=== PATIENT | male | born 1940 | race Caucasian/White ===

== ENCOUNTER 2017-04-16 09:19 | Inpatient (IN) | payer MEDICARE, BC ==
[~2017-04-16] VITALS: Ht 177.8 cm; Wt 100.8 kg
[~2017-04-16 09:19] MED LIST: AMBIEN 5MG TABLE5 MG PO; ASPIRIN 32325 MG/TAB PO; CENTRUM SILVER1 TA1 PO; COMBIVENT INH14.7 GM IH; CRESTOR5 MG PO; GLUCOPHAGE500 MG/TAB PO; KLONOPIN 1MG1 MG PO; LISINOPRIL20 MG PO; METOPROLOL25 MG PO; NEURONTIN300 MG/CAP PO; OMEPRAZOLE20 MG PO; VITAMIN D32000 IU PO
[2017-05-29] VITALS (13 sets, daily range): BP systolic 111–173; BP diastolic 61–84; PULSE 54–83; TEMP 96.9–98.8
[2017-05-29] MEDS ORDERED: PLAVIX 75MG TAB75 MG PO (07:20)
[2017-05-29] MEDS ORDERED: COZAAR100 MG PO (07:21)
[2017-05-30 04:03] VITALS: BP 134/66; PULSE 73; TEMP 98
[2017-05-30 06:59] LABS: HEMOGLOBIN 11.9 g/dl (13.5-18.0)
[2017-05-30 07:36] VITALS: BP 140/65; PULSE 75; TEMP 97.9
[2017-05-30 11:10] VITALS: BP 147/69; PULSE 54; TEMP 98.2
[2017-05-30 15:22] VITALS: BP 152/63; PULSE 81; TEMP 97.7
[2017-05-30 20:45] VITALS: BP 146/66; PULSE 31; PULSE 65; TEMP 98.4
[2017-05-31 00:29] VITALS: BP 148/73; PULSE 62; TEMP 98.2
[2017-05-31 04:31] VITALS: BP 153/66; PULSE 87; TEMP 98.3
[2017-05-31 06:56] LABS: HEMATOCRIT 34.2 % (42.0-52.0); HEMOGLOBIN 11.2 g/dl (13.5-18.0)
[2017-05-31] MEDS ORDERED: ROXICODONE 55 MG/TAB PO (07:07)
[2017-05-31] MEDS ORDERED: NORCO 325 MG-7.1 TAB PO (07:07)
[2017-05-31] MEDS ORDERED: TYLENOL 500MG500 MG PO (07:08)
[2017-05-31] MEDS ORDERED: COLACE 100100 MG/CAP PO (07:09)
[2017-05-31 07:29] VITALS: BP 124/60; PULSE 83; TEMP 98.1
[2017-05-31 11:14] VITALS: BP 149/60; PULSE 60; TEMP 98.1
[2017-05-31 15:52] VITALS: BP 159/59; PULSE 71; TEMP 97.3
[2017-05-31 19:22] VITALS: BP 137/65; PULSE 77; TEMP 97.5
[2017-06-01 00:18] VITALS: BP 157/60; PULSE 82; TEMP 98.2
[2017-06-01 03:58] VITALS: BP 151/57; BP 161/57; PULSE 90; TEMP 98
[2017-06-01] MEDS ORDERED: ULTRAM 50MG TAB50 MG PO (06:30)
[2017-06-01 07:33] VITALS: BP 150/70; PULSE 94; TEMP 99.1
== END 2017-06-01 13:20 | disposition home or self-care (01) | DRG 470 ==
LOC: JCC 05-29 06:38
PROVIDERS: Orthopaedic Surgery
PROC: 0SRC0J9 Replacement of Right Knee Joint with Synthetic Substitute, Cemented, Open Approach (ICD-10-PCS; principal; 2017-05-29 11:00)
DX: M17.11 Unilateral primary osteoarthritis, right knee (principal); I10 Essential (primary) hypertension; E11.9 Type 2 diabetes mellitus without complications; Z87.891 Personal history of nicotine dependence; I25.10 Atherosclerotic heart disease of native coronary artery without angina pectoris; Z95.5 Presence of coronary angioplasty implant and graft; Z95.1 Presence of aortocoronary bypass graft
CPT/HCPCS: A4314; A9284; C1713; C1776; J0690; J1100; J2250; J2405; J2704; J2765; J3010; J7030; J7120

== ENCOUNTER → 2017-05-18 | Outpatient (CLI) | payer MEDICARE, BC | LOC: COL.LAB 12:36 | DX: Z01.812 Encounter for preprocedural laboratory examination (principal) ==

== ENCOUNTER → 2018-02-21 | Outpatient (CLI) | payer MEDICARE, BC ==
[~2018-02-21] VITALS: Ht 177.8 cm; Wt 104.9 kg
[~2018-02-21] MED LIST changes: +ASPIRIN 81M81 MG/TA2 PO; +CENTRUM SILVER1 CTB PO; -CENTRUM SILVER1 TA1 PO; +COLACE 100100 MG/CAP PO; +COZAAR100 MG PO; +LIPITOR20 MG PO; -LISINOPRIL20 MG PO; +NORCO 325 MG-7.1 TAB PO; -OMEPRAZOLE20 MG PO; +PLAVIX 75MG TAB75 MG PO; +PRILOSEC 20MG20 MG PO; +ROXICODONE 55 MG/TAB PO; +TYLENOL 500MG500 MG PO; +ULTRAM 50MG TAB50 MG PO; +ZESTRIL 20MG TA20 MG PO
[2018-02-21 09:29] VITALS: BP 173/91; PULSE 65
[2018-02-21 10:50] VITALS: BP 174/87; PULSE 54
[2018-02-21 12:45] VITALS: BP 177/86; PULSE 53
== END ==
LOC: COL.RAD 08:54
DX: M54.5 Low back pain (principal)
CPT/HCPCS: J3301

== ENCOUNTER → 2018-05-23 | Outpatient (CLI) | payer MEDICARE, BC ==
[~2018-05-23] VITALS: Ht 177.8 cm; Wt 107.2 kg
[2018-05-23 11:51] VITALS: BP 186/88; PULSE 71
[2018-05-23 13:12] VITALS: BP 185/85; PULSE 71
--- NOTE | 2018-05-23 13:16 | NUR ---
WENT OVER DC INFORMATION WITH PT. ALL QUESTIONS INVITED AND ANSWERED.
== END ==
LOC: COL.RAD 11:17
DX: M54.9 Dorsalgia, unspecified (principal)
CPT/HCPCS: J3301

== ENCOUNTER → 2021-09-07 | Outpatient (CLI) | payer MEDICARE, BC ==
[2021-09-07] VITALS (9 sets, daily range): BP systolic 146–178; BP diastolic 53–83; PULSE 53–59; TEMP 97.6
[~2021-09-07] VITALS: Ht 177.8 cm; Wt 101.6 kg
[~2021-09-07] MED LIST changes: +ELIQUIS 5MG PO; +EUTHYROX50 MCG PO; +NORVASC2.5 MG PO
[2021-09-07 11:59] LABS: INR 1.3 (0.8-3.0); PROTHROMBIN TIME 14.6 SECONDS (9.7-12.8)
--- NOTE | 2021-09-07 12:45 | NUR ---
in room, talked with pt and procedure started
--- NOTE | 2021-09-07 13:00 | NUR ---
liver tissue speciman put in formulin, then taken to lab, kun over site
== END ==
LOC: COL.RAD 11:00
PROVIDERS: Internal Medicine Gastroenterology
DX: K76.9 Liver disease, unspecified (principal)